=== PATIENT | female | born 1990 | race Hispanic/Latino ===

== ENCOUNTER 2021-08-12 02:25 | Emergency (ER) | payer MEDICAID ==
[2021-08-12 05:42] VITALS: BP 136/80
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
== END 2021-08-12 06:54 | disposition home or self-care (01) ==
LOC: ED 02:25
DX: T14.8XXA Other injury of unspecified body region, initial encounter (principal); T76.21XA Adult sexual abuse, suspected, initial encounter; Y93.89 Activity, other specified; Y92.89 Other specified places as the place of occurrence of the external cause; Y99.8 Other external cause status
CPT/HCPCS: 82962; 93005; 99283